=== PATIENT | male | born 1970 | race Caucasian/White ===

== ENCOUNTER 2017-04-15 11:58 | Emergency (ER) | payer MEDICARE, MEDICAID ==
--- NOTE | 2017-04-15 12:06 | ER Document Report ---
ED Seizure - General Chief Complaint: Probable Seizure Stated Complaint: POSSIBLE SEIZURE Time Seen by Provider: 04/15/17 12:03 Notes: Patient is a 46-year-old male, past medical history cerebral palsy, seizures in 2013 (taken off meds by Neurologist), chronic back pain, presents with a brief witnessed seizure that was described as generalized tonic-clonic and then a postictal period. His caregiver said that he was initially confused, but is improving while in the emergency room. He is due for his Klonopin and oxycodone right now. He is also having a new cough today. Denies head injury, rash, fevers or acute neuro changes. - Related Data Allergies/Adverse Reactions: Sulfa (Sulfonamide Antibiotics) Allergy (Severe, Verified 06/18/15 21:52) Vomiting Past Medical History - General Information source: Parent - Social History Smoking Status: Never Smoker Family History: Reviewed & Not Pertinent - Past Medical History Cardiac Medical History: Denies: Hx Coronary Artery Disease, Hx Heart Attack, Hx Hypertension Pulmonary Medical History: Reports: Hx Bronchitis, Hx Pneumonia - HX RESP FAILURE WITH PNEU LAST YEAR, Hx Tuberculosis Denies: Hx Asthma, Hx COPD Neurological Medical History: Reports: Hx Seizures. Denies: Hx Cerebrovascular Accident GI Medical History: Reports: Hx Gastroesophageal Reflux Disease, Hx Ulcer Musculoskeltal Medical History: Denies Hx Arthritis Psychiatric Medical History: Denies: Hx Depression Past Surgical History: Reports: Hx Orthopedic Surgery - Cyndy Rods for Scoliosis, 3 more subsequent back surgeries.. Denies: Hx Appendectomy, Hx Bowel Surgery, Hx Cholecystectomy, Hx Coronary Artery Bypass Graft, Hx Gastric Bypass Surgery, Hx Herniorrhaphy, Hx Pacemaker, Hx Tonsillectomy - Immunizations Immunizations up to date: Yes Hx Diphtheria, Pertussis, Tetanus Vaccination: Yes - UNSURE Hx Pneumococcal Vaccination: 10/29/14 Review of Systems - Review of Systems Notes: REVIEW OF SYSTEMS: CONSTITUTIONAL: -fevers, -chills EENT: -eye pain, -difficulty swallowing, -nasal congestion CARDIOVASCULAR:-chest pain, -syncope. RESPIRATORY: +cough, -SOB GASTROINTESTINAL: -abdominal pain, - nausea, -vomiting, -diarrhea GENITOURINARY: -dysuria, -hematuria MUSCULOSKELETAL: -back pain, -neck pain SKIN: -rash or skin lesions. HEMATOLOGIC: -easy bruising or bleeding. LYMPHATIC: -swollen, enlarged glands. NEUROLOGICAL: -headache, +seizures PSYCHIATRIC: -anxiety, -depression. ALL OTHER SYSTEMS REVIEWED AND NEGATIVE. Physical Exam - Vital signs Vitals: Resp Pulse Ox 10 L 91 L 04/15/17 12:10 04/15/17 12:10 - Notes Notes: PHYSICAL EXAMINATION: GENERAL: Contracted, no acute distress HEAD: Atraumatic, normocephalic. EYES: Pupils equal round and reactive to light, extraocular movements intact, sclera anicteric, conjunctiva are normal. ENT: nares patent, oropharynx clear without exudates. Moist mucous membranes. NECK: Normal range of motion, supple without lymphadenopathy LUNGS: Crackles in B/L upper lobes, no respiratory distress HEART: Regular rate and rhythm without murmurs ABDOMEN: G-tube in place, soft, nontender, normoactive bowel sounds. No guarding, no rebound. No masses appreciated. EXTREMITIES: Contracted extremities NEUROLOGICAL: Alert, no acute findings SKIN: Warm, Dry, normal turgor, no rashes or lesions noted. Course - Re-evaluation Re-evalutation: Pt is back to baseline. He was given his clonazepam has not had any additional seizures in the emergency room. Call from his primary care physician with urine culture results which were faxed over. With the pneumonia and UTI, will switch patient over to doxycycline and follow-up at primary care physician and neurologist. Patient in no respiratory distress and is satting 95% on his normal 2 L nasal cannula. Given strict return precautions and he understands. - Vital Signs Vital signs: Temp Pulse Resp BP Pulse Ox 98.4 F 92 12 126/86 H 94 04/15/17 12:13 04/15/17 12:13 04/15/17 13:01 04/15/17 13:00 04/15/17 13:01 - Laboratory Result Diagrams: 04/15/17 12:35 Laboratory results interpreted by me: 04/15/17 12:35 Chloride 95 L Carbon Dioxide 32 H BUN 24 H Calcium 10.3 H - Diagnostic Test Radiology reviewed: Image reviewed, Reports reviewed Radiology results interpreted by me: CXR: right upper airspace disease and left lung disease Discharge - Discharge Clinical Impression: Seizure Pneumonia Qualifiers: Pneumonia type: due to unspecified organism Laterality: bilateral Lung location : upper lobe of lung Qualified Code(s): J18.9 - Pneumonia, unspecified organism Condition: Stable Disposition: HOME, SELF-CARE Additional Instructions: Seizure You have had a seizure. Seizure disorders (epilepsy) of one sort or another affect about one out of 50 people. The seizure occurs because of abnormal electrical activity in the brain. Seizures may be due to drugs and alcohol, strokes, brain injury, or infection. In the most common form of epilepsy, no cause can be found. You will require further evaluation to determine the cause of your seizure, and to determine whether anti-seizure medication is required. This follow-up testing is important, so please call us if you encounter problems with scheduling of tests or appointments. YOU SHOULD NOT DRIVE until released to do so by your physician. The law requires that seizures be reported to the industrial tractor driver's license bureau--a seizure while driving could be catastrophic. Call the doctor if seizures recur, or if you develop new symptoms such as fever, severe headache, stiff neck, confusion or increasing sleepiness, weakness or numbness, or visual problems. PNEUMONIA: Your examination indicates that you have pneumonia. This is an infection of the lung tissue, usually caused by bacteria or a virus. Symptoms include cough, fever, shaking chills, chest pain, shortness of breath, and coughing up bloody sputum. Treatment for bacterial pneumonia includes rest, antibiotics for 10 to 14 days, increasing your clear liquid intake, a cool mist humidifier at your bedside, and fever medication. Often, a repeat chest X-ray is performed in a few weeks--even if you feel better--to ascertain whether the infection has completely resolved and no underlying lung problem is present. You should call the physician if you develop persistent vomiting, high fever that does not respond to fever medication, increasing shortness of breath , confusion, or lethargy. Also, failure to improve within two to three days is an indication for re-examination. ANTIBIOTIC INJECTION: You have been given an antibiotic injection. Sometimes the injection must be combined with antibiotic pills. For some infections, the shot provides all the antibiotic that's needed. Common side effects of antibiotics include nausea, intestinal cramping, or diarrhea. These are very unusual following a shot. Women may develop vaginal yeast infections, and babies can get yeast ( thrush) in the mouth following the use of antibiotics. Contact your physician if you develop significant side effects from this medication. Allergy to this antibiotic can result in hives, wheezing, faintness, or itching. If symptoms of allergy occur, call the doctor at once. ANTIBIOTIC THERAPY: You have been given an antibiotic prescription. It's important that you take all the medication, unless instructed otherwise by your physician. Failure to complete the entire course can result in relapse of your condition. Common side effects of antibiotics include nausea, intestinal cramping, or diarrhea. Women may develop vaginal yeast infections, and babies can get yeast (thrush) in the mouth following the use of antibiotics. Contact your physician if you develop significant side effects from this medication. Allergy to this antibiotic can result in hives, wheezing, faintness, or itching. If symptoms of allergy occur, stop the medication and call the doctor. DOXYCYCLINE: Doxycycline (Vibramycin, Doryx) is an antibiotic of the tetracycline family. This type of drug is useful for infections of the respiratory tract and genital tract, and is sometimes used for intestinal infections. Unlike most tetracyclines, doxycycline can be taken with food. It is longer acting, and (usually) less prone to side effects than regular tetracycline. Tetracycline antibiotics can stain immature teeth and SHOULD NOT BE TAKEN BY CHILDREN, NURSING MOTHERS, OR WOMEN. Tetracyclines can make you more prone to sunburn. Abdominal cramping, nausea, and diarrhea are occasional side effects. Women may experience vaginal yeast infections. Call the doctor at once if you develop hives, itching, shortness of breath , or lightheadedness. USE OF ACETAMINOPHEN (Tylenol): Acetaminophen may be taken for pain relief or fever control. It's much safer than aspirin, offering a wider range of "safe" dosages. It is safe during . Some brand names are Tylenol, Panadol, Datril, Anacin 3, Tempra, and Liquiprin. Acetaminophen can be repeated every four hours. The following are maximum recommended dosages: WEIGHT Dose Drops Elixir Chewable( 80mg) (LBS.) drprs=droppers tsp=teaspoon 6 40 mg 0.4 ml (1/2) 6-11 80 mg 0.8 ml (full) tsp 1 tab 12-16 120 mg 1 1/2 drprs 3/4 tsp 1 1/2 tabs 17-23 160 mg 2 drprs 1 tsp 2 tabs 24-30 240 mg 3 drprs 1 1/2 tsp 3 tabs 30-35 320 mg 2 tsp 4 tabs 36-41 360 mg 2 1/4 tsp 4 1/2 tabs 42-47 400 mg 2 1/2 tsp 5 tabs 48-53 480 mg 3 tsp 6 tabs 54-59 520 mg 3 1/4 tsp 6 1/2 tabs 60-64 560 mg 3 1/2 tsp 7 tabs 65-70 600 mg 3 3/4 tsp 7 1/2 tabs 71-76 640 mg 4 tsp 8 tabs 77-82 720 mg 4 1/2 tsp 9 tabs 83-88 800 mg 5 tsp 10 tabs >89 pounds or adults 650 mg to 900 mg Acetaminophen can be repeated every four hours. Maximum dose not to exceed 4000 mg a day. These maximum recommended dosages are slightly higher than the dosages written on the product container, but these dosages are very safe and below the toxic dosage for acetaminophen. FOLLOW-UP CARE: If you have been referred to a physician for follow-up care, call the physician s office for an appointment as you were instructed or within the next two days. If you experience worsening or a significant change in your symptoms, notify the physician immediately or return to the Emergency Department at any time for re-evaluation. Prescriptions: Doxycycline Hyclate 100 mg PO BID #14 capsule Referrals: JOSE ROBERTO SHANNON MD [Primary Care Provider] - Follow up as needed OSCAR WISE MD [ACTIVE STAFF] - Follow up as needed
[2017-04-15 12:57] LABS: ANION GAP 16 (5-19); BLOOD UREA NITROGEN 24 mg/dL (7-20); CALCIUM 10.3 mg/dL (8.4-10.2); CARBON DIOXIDE 32 mmol/L (22-30); CHLORIDE 95 mmol/L (98-107); CREATININE RESULT 0.74 mg/dL (0.52-1.25); GLUCOSE 108 mg/dL (75-110); SODIUM 143.1 mmol/L (137-145)
[2017-04-15] MEDS ORDERED: DOXYCYCLINE HYCLATE 100 MG TABLET PO ONE (13:50)
[2017-04-15 15:05] VITALS: BP 120/101
== END 2017-04-15 15:06 | disposition home or self-care (01) ==
LOC: ER 11:58
DX: R56.9 Unspecified convulsions (principal); N18.9 Chronic kidney disease, unspecified; G80.9 Cerebral palsy, unspecified; N39.0 Urinary tract infection, site not specified; R05 Cough; G89.29 Other chronic pain; Z79.891 Long term (current) use of opiate analgesic; Z79.899 Other long term (current) drug therapy; Z88.2 Allergy status to sulfonamides; Z93.1 Gastrostomy status
CPT/HCPCS: 99284; 36415; 80048; 71010; A9270

== ENCOUNTER → 2017-04-30 | Outpatient (CLI) | payer MEDICARE, MEDICAID ==
--- NOTE | 2017-05-06 16:23 | RADIOLOGY REPORT (SQ) ---
EXAM DESCRIPTION: UPPER GI/SM BOWEL COMPLETED DATE/TIME: 04/30/2017 12:14 pm REASON FOR STUDY: NAUSEA WITH VOMITING R11.2 NAUSEA WITH VOMITING, UNSPECIFIED R10.13 EPIGASTRIC P AIN R63.3 FEEDING DIFFICULTIES COMPARISON: None. TECHNIQUE: Under fluoroscopic guidance, thin barium was instilled through the patient's indwelling P EG tube. Fluoroscopic spot images and routine radiographic images acquired and stored on PACS. Following evaluation of stomach, additional barium administered with serial delayed abdominal radiogr aphs until colonic identification. Fluoroscopic images recorded of the terminal ileum. 12 MM BARIUM TABLET GIVEN: No. Patient is NPO. FLUOROSCOPY TIME: 2.4 minutes of fluoroscopy was used. 31 images saved to PACS. LIMITATIONS: Patient is non mobile FINDINGS: STOMACH: PEG tube in place. Normal without masses or ulcerations. GASTRIC OUTLET: No delay in emptying. Normal pylorus. DUODENAL BULB: Normal distention. No spasm or ulceration. DUODENUM: Mucosa normal. No extrinsic masses or malrotation. PROXIMAL SMALL BOWEL: Normal as visualized. JEJUNUM: Normal mucosal pattern. No dilatation, segmentation, strictures or masses. ILEUM: Normal mucosal pattern. No dilatation, segmentation, strictures or masses. TERMINAL ILEUM AND ILEO-CECAL VALVE: Normal mucosal pattern without cobble-stoning or stricture. Nor mal compression. PROXIMAL COLON: Incompletely imaged. No abnormality. NON-GI TRACT STRUCTURES: PEG tube in place over the mid abdomen with the tip within the lumen of the stomach. There is tracking of contrast along the tube tract to the insertion site. No extravasation of contrast is seen. OTHER: Spinal hardware is seen in place extending from the lower thoracic to the pelvis. IMPRESSION: 1. STOMACH AND DUODENUM ARE UNREMARKABLE. NO EVIDENCE OF ULCERATIONS OR MASSES. PEG T UBE IN PLACE WITH A SMALL AMOUNT OF CONTRAST TRACKING ALONG THE TUBE TRACT, WITHOUT INTRA-ABDOMINAL E XTRAVASATION. 2. NORMAL SMALL BOWEL FOLLOW-THROUGH WITHOUT EVIDENCE OF SMALL-BOWEL OBSTRUCTION. COMMENT: Quality ID [id number]: Final reports for procedures using fluoroscopy that document radiation exp osure indices, or exposure time and number of fluorographic images (if radiation exposure indices are not available) TECHNICAL DOCUMENTATION: JOB ID: [id number] [employer]- All Rights Reserved
== END ==
LOC: RAD 08:46
PROVIDERS: ATTEND Internal Medicine Gastroenterology
DX: R11.2 Nausea with vomiting, unspecified (principal); R10.13 Epigastric pain; R63.3 Feeding difficulties
CPT/HCPCS: 74249

== ENCOUNTER → 2017-07-08 | Outpatient (CLI) | payer MEDICARE, MEDICAID ==
[2017-07-08 14:31] LABS: ABSOLUTE BASOPHILS # (AUTO) 0.1 10^3/uL (0.0-0.2); ABSOLUTE EOSINOPHILS # (AUTO) 0.2 10^3/uL (0.0-0.6); ABSOLUTE LYMPHOCYTES (AUTO) 2.3 10^3/uL (0.5-4.7); ABSOLUTE MONOCYTES (AUTO) 0.8 10^3/uL (0.1-1.4); ABSOLUTE NEUT (AUTO) 12.1 10^3/uL (1.7-8.2); BASOPHILS % (AUTO) 0.9 % (0-2); EOSINOPHILS % (AUTO) 1.1 % (0-6); HEMOGLOBIN 10.5 g/dL (13.5-17.0); HGB HCT DIFFERENCE -0.5; LYMPHOCYTES % (AUTO) 14.9 % (13-45); MEAN CORPUSCULAR HEMOGLOBIN 30.1 pg (27.0-33.4); MEAN CORPUSCULAR HGB CONC 32.9 g/dL (32.0-36.0); MEAN CORPUSCULAR VOLUME 92 fl (80-97); MONOCYTES % (AUTO) 5.4 % (3-13); RED CELL DISTRIBUTION WIDTH 14.1 % (11.5-14.0); SEGMENTED NEUTROPHILS % (AUTO) 77.7 % (42-78); WHITE BLOOD COUNT 15.6 10^3/uL (4.0-10.5)
[2017-07-08 14:48] LABS: ALANINE AMINOTRANSFERASE 63 U/L (21-72); ALBUMIN 4.5 g/dL (3.5-5.0); ALKALINE PHOSPHATASE 187 U/L (38-126); ANION GAP 13 (5-19); ASPARTATE AMINO TRANSFERASE 53 U/L (17-59); BILIRUBIN,DIRECT 0.7 mg/dL (0.0-0.4); BILIRUBIN,TOTAL 0.7 mg/dL (0.2-1.3); BLOOD UREA NITROGEN 25 mg/dL (7-20); CALCIUM 9.9 mg/dL (8.4-10.2); CARBON DIOXIDE 34 mmol/L (22-30); CHLORIDE 92 mmol/L (98-107); CREATININE RESULT 0.67 mg/dL (0.52-1.25); GLUCOSE 193 mg/dL (75-110); POTASSIUM 4.2 mmol/L (3.6-5.0); SODIUM 139.4 mmol/L (137-145); TOTAL PROTEIN 8.6 g/dL (6.3-8.2)
== END ==
LOC: OD 13:39
PROVIDERS: ATTEND Family Medicine Geriatric Medicine
DX: D64.9 Anemia, unspecified (principal); Z79.899 Other long term (current) drug therapy
CPT/HCPCS: 36415; 80053; 82728; 83540; 83550; 84466; 85025; 85045

== ENCOUNTER → 2018-03-08 | Outpatient (CLI) | payer MEDICARE, MEDICAID ==
[2018-03-08 14:55] LABS: ABSOLUTE BASOPHILS # (AUTO) 0.1 10^3/uL (0.0-0.2); ABSOLUTE EOSINOPHILS # (AUTO) 0.1 10^3/uL (0.0-0.6); ABSOLUTE MONOCYTES (AUTO) 0.9 10^3/uL (0.1-1.4); ABSOLUTE NEUT (AUTO) 11.3 10^3/uL (1.7-8.2); BASOPHILS % (AUTO) 0.4 % (0-2); EOSINOPHILS % (AUTO) 0.6 % (0-6); HEMATOCRIT 34.8 % (37.9-51.0); HEMOGLOBIN 11.4 g/dL (13.5-17.0); LYMPHOCYTES % (AUTO) 7.4 % (13-45); MEAN CORPUSCULAR HGB CONC 32.6 g/dL (32.0-36.0); MEAN CORPUSCULAR VOLUME 92 fl (80-97); MONOCYTES % (AUTO) 6.6 % (3-13); PLATELET COUNT 350 10^3/uL (150-450); RED BLOOD COUNT 3.79 10^6/uL (4.35-5.55); RED CELL DISTRIBUTION WIDTH 14.2 % (11.5-14.0); TOTAL CELLS COUNTED % (AUTO) 100 %; WHITE BLOOD COUNT 13.3 10^3/uL (4.0-10.5)
[2018-03-08 15:24] LABS: ALANINE AMINOTRANSFERASE 37 U/L (21-72); ALBUMIN 4.1 g/dL (3.5-5.0); ALKALINE PHOSPHATASE 147 U/L (38-126); ANION GAP 15 (5-19); ASPARTATE AMINO TRANSFERASE 34 U/L (17-59); BILIRUBIN,DIRECT 0.3 mg/dL (0.0-0.4); BILIRUBIN,TOTAL 0.3 mg/dL (0.2-1.3); BLOOD UREA NITROGEN 25 mg/dL (7-20); CALCIUM 9.7 mg/dL (8.4-10.2); CARBON DIOXIDE 34 mmol/L (22-30); CHLORIDE 95 mmol/L (98-107); POTASSIUM 3.9 mmol/L (3.6-5.0); SODIUM 144.4 mmol/L (137-145); TOTAL PROTEIN 7.9 g/dL (6.3-8.2)
[2018-03-08 15:25] LABS: GLUCOSE 153 mg/dL (75-110)
== END ==
LOC: OD 13:15
PROVIDERS: ATTEND Family Medicine Geriatric Medicine
DX: D50.9 Iron deficiency anemia, unspecified (principal); N39.0 Urinary tract infection, site not specified; G40.909 Epilepsy, unspecified, not intractable, without status epilepticus; Z79.899 Other long term (current) drug therapy
CPT/HCPCS: 36415; 80053; 85025; 87086; 87088; 87186

== ENCOUNTER 2018-03-10 15:25 | Emergency (ER) | payer MEDICARE, MEDICAID ==
--- NOTE | 2018-03-10 16:35 | ER Document Report ---
ED Medical Screen (RME) - General Chief Complaint: Fever Stated Complaint: POSSIBLE DEHYDRATION Time Seen by Provider: 03/10/18 16:27 Notes: 47-year-old male patient with severe cerebral palsy, feeding gastrostomy and suprapubic tube. Mother reports she has had low-grade temperature for a week. She reports that he is making urine but not very much because he is not getting much liquids. He does receive his fluids through the feeding tube. There was a little confusing trying to elicit the specific reason why he is not receiving adequate fluid and while she thinks that he is getting dehydrated. He did have lab work done 2 days ago with a CBC, Chem-12, and a urine culture. Urine culture grew Pseudomonas, corynebacterium, and gram-positive cocci clusters, all 3 at greater than 100,000 colony count. He was to start gentamicin injections at home today, but the mother was concerned that he was getting dehydrated so he was instructed to come to the emergency room for evaluation and treatment. I have greeted and performed a rapid initial assessment of this patient. A comprehensive ED assessment and evaluation of the patient, analysis of test results and completion of the medical decision making process will be conducted by additional ED providers. TRAVEL OUTSIDE OF THE [place] IN LAST 30 DAYS: No - Related Data Allergies/Adverse Reactions: Sulfa (Sulfonamide Antibiotics) Allergy (Severe, Verified 03/10/18 15:27) Vomiting Past Medical History - Past Medical History Cardiac Medical History: Denies: Hx Coronary Artery Disease, Hx Heart Attack, Hx Hypertension Pulmonary Medical History: Reports: Hx Bronchitis, Hx Pneumonia - HX RESP FAILURE WITH PNEU LAST YEAR, Hx Tuberculosis Denies: Hx Asthma, Hx COPD Neurological Medical History: Reports: Hx Seizures. Denies: Hx Cerebrovascular Accident Renal/ Medical History: Denies: Hx Peritoneal Dialysis GI Medical History: Reports: Hx Gastroesophageal Reflux Disease, Hx Ulcer Musculoskeltal Medical History: Denies Hx Arthritis Psychiatric Medical History: Denies: Hx Depression Past Surgical History: Reports: Hx Orthopedic Surgery - Cyndy Rods for Scoliosis, 3 more subsequent back surgeries.. Denies: Hx Appendectomy, Hx Bowel Surgery, Hx Cholecystectomy, Hx Coronary Artery Bypass Graft, Hx Gastric Bypass Surgery, Hx Herniorrhaphy, Hx Pacemaker, Hx Tonsillectomy - Immunizations Immunizations up to date: Yes Hx Diphtheria, Pertussis, Tetanus Vaccination: Yes - UNSURE Physical Exam - Vital signs Vitals: Temp Pulse Resp BP Pulse Ox 98.4 F 89 14 93/64 L 96 03/10/18 15:33 03/10/18 15:33 03/10/18 15:33 03/10/18 15:33 03/10/18 15:33 Course - Vital Signs Vital signs: Temp Pulse Resp BP Pulse Ox 98.4 F 89 14 93/64 L 96 03/10/18 15:33 03/10/18 15:33 03/10/18 15:33 03/10/18 15:33 03/10/18 15:33
[2018-03-10 17:51] LABS: ABSOLUTE BASOPHILS # (AUTO) 0.1 10^3/uL (0.0-0.2); ABSOLUTE LYMPHOCYTES (AUTO) 1.2 10^3/uL (0.5-4.7); ABSOLUTE MONOCYTES (AUTO) 1.4 10^3/uL (0.1-1.4); ABSOLUTE NEUT (AUTO) 14.4 10^3/uL (1.7-8.2); BASOPHILS % (AUTO) 0.3 % (0-2); EOSINOPHILS % (AUTO) 0.1 % (0-6); HEMATOCRIT 32.1 % (37.9-51.0); HEMOGLOBIN 10.4 g/dL (13.5-17.0); LYMPHOCYTES % (AUTO) 7.1 % (13-45); MEAN CORPUSCULAR HEMOGLOBIN 29.4 pg (27.0-33.4); MEAN CORPUSCULAR HGB CONC 32.2 g/dL (32.0-36.0); MEAN CORPUSCULAR VOLUME 91 fl (80-97); MONOCYTES % (AUTO) 8.1 % (3-13); PLATELET COUNT 352 10^3/uL (150-450); RED BLOOD COUNT 3.52 10^6/uL (4.35-5.55); RED CELL DISTRIBUTION WIDTH 14.1 % (11.5-14.0); SEGMENTED NEUTROPHILS % (AUTO) 84.4 % (42-78); TOTAL CELLS COUNTED % (AUTO) 100 %
[2018-03-10 18:10] LABS: ALANINE AMINOTRANSFERASE 33 U/L (21-72); ALBUMIN 3.8 g/dL (3.5-5.0); ALKALINE PHOSPHATASE 167 U/L (38-126); ANION GAP 9 (5-19); ASPARTATE AMINO TRANSFERASE 22 U/L (17-59); BILIRUBIN,DIRECT 0.4 mg/dL (0.0-0.4); BILIRUBIN,TOTAL 0.4 mg/dL (0.2-1.3); BLOOD UREA NITROGEN 25 mg/dL (7-20); CALCIUM 9.5 mg/dL (8.4-10.2); CARBON DIOXIDE 35 mmol/L (22-30); CHLORIDE 96 mmol/L (98-107); GLUCOSE 114 mg/dL (75-110); POTASSIUM 3.8 mmol/L (3.6-5.0); SODIUM 140.3 mmol/L (137-145); TOTAL PROTEIN 7.6 g/dL (6.3-8.2)
[2018-03-10] MEDS ORDERED: NORMAL SALINE 1000 ML 1,000 ML IV ONE (18:17)
--- NOTE | 2018-03-10 19:06 | ER Document Report ---
ED General - General Chief Complaint: Fever Stated Complaint: POSSIBLE DEHYDRATION Time Seen by Provider: 03/10/18 16:27 TRAVEL OUTSIDE OF THE [place] IN LAST 30 DAYS: No - HPI Patient complains to provider of: Fever, UTI, dehydration Onset: Other - 4-5 days Onset/Duration: Persistent, Worse Notes: 47-year-old male patient with severe cerebral palsy, feeding gastrostomy and suprapubic tube. Mother reports she has had low-grade temperature for a week. She reports that he is making urine but not very much because he is not getting much liquids. He does receive his fluids through the feeding tube. Patient had outpatient labs performed earlier this week which shows evidence of a urinary tract infection as well as some kidney and liver dysfunction according to patient's mother, he was given a prescription for intramuscular antibiotic injections which mother is comfortable giving at home but she was concerned that he was possibly dehydrated and needed IV fluids - Related Data Allergies/Adverse Reactions: Sulfa (Sulfonamide Antibiotics) Allergy (Severe, Verified 03/10/18 15:27) Vomiting Past Medical History - General Information source: Parent - Social History Smoking Status: Never Smoker Family History: Reviewed & Not Pertinent Patient has suicidal ideation: No Patient has homicidal ideation: No - Past Medical History Cardiac Medical History: Denies: Hx Coronary Artery Disease, Hx Heart Attack, Hx Hypertension Pulmonary Medical History: Reports: Hx Bronchitis, Hx Pneumonia - HX RESP FAILURE WITH PNEU LAST YEAR, Hx Tuberculosis Denies: Hx Asthma, Hx COPD Neurological Medical History: Reports: Hx Seizures. Denies: Hx Cerebrovascular Accident Renal/ Medical History: Denies: Hx Peritoneal Dialysis GI Medical History: Reports: Hx Gastroesophageal Reflux Disease, Hx Ulcer Musculoskeltal Medical History: Denies Hx Arthritis Psychiatric Medical History: Denies: Hx Depression Past Surgical History: Reports: Hx Orthopedic Surgery - Cyndy Rods for Scoliosis, 3 more subsequent back surgeries.. Denies: Hx Appendectomy, Hx Bowel Surgery, Hx Cholecystectomy, Hx Coronary Artery Bypass Graft, Hx Gastric Bypass Surgery, Hx Herniorrhaphy, Hx Pacemaker, Hx Tonsillectomy - Immunizations Immunizations up to date: Yes Hx Diphtheria, Pertussis, Tetanus Vaccination: Yes - UNSURE Hx Pneumococcal Vaccination: 10/29/14 Review of Systems - Review of Systems Constitutional: Fever EENT: No symptoms reported Cardiovascular: No symptoms reported Respiratory: No symptoms reported Gastrointestinal: Poor appetite, Poor fluid intake Genitourinary: No symptoms reported Male Genitourinary: No symptoms reported Musculoskeletal: No symptoms reported Skin: No symptoms reported Hematologic/Lymphatic: No symptoms reported Neurological/Psychological: No symptoms reported -: Yes All other systems reviewed and negative Physical Exam - Vital signs Vitals: Temp Pulse Resp BP Pulse Ox 98.4 F 89 14 93/64 L 96 03/10/18 15:33 03/10/18 15:33 03/10/18 15:33 03/10/18 15:33 03/10/18 15:33 Interpretation: Hypotensive - General General appearance: Alert In distress: None - HEENT Head: Normocephalic, Atraumatic Eyes: Normal Cornea: Normal Eyelashes: Normal Pupils: PERRL Mucous membranes: Dry - Respiratory Respiratory status: No respiratory distress Chest status: Nontender Breath sounds: Normal Chest palpation: Normal - Cardiovascular Rhythm: Regular Heart sounds: Normal auscultation Murmur: No - Abdominal Inspection: Other - Gastrostomy tube in place Bowel sounds: Normal Tenderness: Nontender Organomegaly: No organomegaly - Extremities General upper extremity: Other - Bilaterally contracted - Skin Skin Temperature: Warm Skin Moisture: Dry Skin Color: Normal Course - Re-evaluation Re-evalutation: 03/10/18 23:03 Patient with leukocytosis and otherwise mild abnormalities on chemistry, he was provided with IV fluids, I had a discussion with patient's mother regarding treatment plan, and she does state that she is comfortable giving intramuscular doses of antibiotics at home and would prefer patient to go home with this medication that was prescribed by his primary care provider as he would be much more comfortable given the degree of cerebral palsy and his special needs, since patient is otherwise stable, he was discharged after receiving IV fluids and 1 dose of IV gentamicin, mother was advised to follow-up with the primary care provider as directed or return if symptoms worsen, mother acknowledges understanding and agreement with this plan - Vital Signs Vital signs: Temp Pulse Resp BP Pulse Ox 97.9 F 91 14 89/62 L 96 03/10/18 22:24 03/10/18 22:24 03/10/18 15:33 03/10/18 22:24 03/10/18 22:24 - Laboratory Result Diagrams: 03/10/18 17:32 03/10/18 17:32 Laboratory results interpreted by me: 03/10/18 03/10/1803/10/18 17:32 17:32 19:26 WBC 17.0 H RBC 3.52 L Hgb 10.4 L Hct 32.1 L RDW 14.1 H Seg Neutrophils % 84.4 H Lymphocytes % 7.1 L Absolute Neutrophils 14.4 H Chloride 96 L Carbon Dioxide 35 H BUN 25 H Creatinine 0.42 L Glucose 114 H Alkaline Phosphatase 167 H Urine Protein 30 H Urine Ketones 20 H Urine Nitrite POSITIVE H Urine Bilirubin SMALL H Urine Urobilinogen 2.0 H Ur Leukocyte Esterase LARGE H Discharge - Discharge Clinical Impression: Urinary tract infection Qualifiers: Urinary tract infection type: site unspecified Hematuria presence: without hematuria Qualified Code(s): N39.0 - Urinary tract infection, site not specified Condition: Stable Disposition: HOME, SELF-CARE Instructions: Urinary Tract Infection ([facility]) Additional Instructions: Follow up with your primary care provider in one to 2 days. Return to the emergency room immediately if symptoms worsen or any additional concerns. Referrals: WILLIAM SHANNON MD [Primary Care Provider] - Follow up as needed
[2018-03-10 20:00] LABS: AMORPHOUS SEDIMENT,URINE TRACE /HPF; APPEARANCE,URINE CLOUDY; BILIRUBIN,URINE SMALL (NEGATIVE); COLOR,URINE AMBER; GLUCOSE, URINE NEGATIVE (NEGATIVE); KETONES,URINE 20 mg/dL (NEGATIVE); LEUKOCYTE ESTERASE,URINE LARGE (NEGATIVE); NITRITE,URINE POSITIVE (NEGATIVE); PROTEIN,URINE 30 mg/dL (NEGATIVE); URINE SPECIFIC GRAVITY 1.025
[2018-03-10] MEDS ORDERED: GENTAMICIN SULFATE INJ 80 MG/2 ML VIAL IV ONE (20:25)
[2018-03-10 22:31] VITALS: BP 89/62
== END 2018-03-10 22:32 | disposition home or self-care (01) ==
LOC: ER 15:25
DX: N39.0 Urinary tract infection, site not specified (principal); R50.9 Fever, unspecified; D72.829 Elevated white blood cell count, unspecified; G80.9 Cerebral palsy, unspecified; Z93.1 Gastrostomy status
CPT/HCPCS: 36415; 87040; 87086; 85025; 87088; 80053; 81001; 87186; J1580; J7030; 96361; 96365; 99283

== ENCOUNTER → 2018-03-24 | Outpatient (CLI) | payer MEDICARE, MEDICAID ==
--- NOTE | 2018-03-24 11:10 | RADIOLOGY REPORT (SQ) ---
EXAM DESCRIPTION: U/S ABDOMEN COMPLETE W/O DOP COMPLETED DATE/TIME: 03/24/2018 10:32 am REASON FOR STUDY: R94.6 ABNORMAL RESULTS OF THYROID FUNCTION STUDIES R94.6 ABNORMAL RESULTS OF THYR OID FUNCTION STUDIES COMPARISON: None. TECHNIQUE: Dynamic and static grayscale images acquired of the abdomen and recorded on PACS. Additio nal selected color Doppler and spectral images recorded. LIMITATIONS: None. FINDINGS: PANCREAS: No masses. Visualized pancreatic duct normal caliber. LIVER: No masses. Echotexture normal. LIVER VASCULATURE: Normal directional flow of the main portal vein and hepatic veins. GALLBLADDER: No stones. Normal wall thickness. No pericholecystic fluid. ULTRASOUND-DETECTED OLIVEIRA'S SIGN: Negative. INTRAHEPATIC DUCTS AND COMMON DUCT: CBD and intrahepatic ducts normal caliber. No filling defects. INFERIOR VENA CAVA: Normal flow. AORTA: No aneurysm. RIGHT KIDNEY: Normal size. Normal echogenicity. No solid or suspicious masses. No hydronephros is. No calcifications. LEFT KIDNEY: Normal size. Normal echogenicity. No solid or suspicious masses. No hydronephrosi s. No calcifications. SPLEEN: Normal size. No solid masses. PERITONEAL AND PLEURAL SPACES: No ascites or effusions. OTHER: No other significant finding. IMPRESSION: NORMAL ABDOMINAL ULTRASOUND. TECHNICAL DOCUMENTATION: JOB ID: [id number] [employer]- All Rights Reserved Reading location - IP/workstation name: [email or web address]
== END ==
LOC: RAD 09:27
PROVIDERS: ATTEND Family Medicine Geriatric Medicine
DX: R94.6 Abnormal results of thyroid function studies (principal)
CPT/HCPCS: 76700

== ENCOUNTER 2018-04-04 11:56 | Day surgery (SDC) | payer MEDICARE, MEDICAID ==
[~2018-04-04 11:56] MED LIST: DEXTROSE 5%-1/2 NORMAL SALINE 1,000 ML IV PRN; VANCOMYCIN HCL 500 MG in DEXTROSE 5%-WATER 100 ML IV PRN
[2018-04-04] MEDS ORDERED: LIDOCAINE 0.5% INJ-PF (5 MG/ML) 50 ML SDV ONE (13:07)
[2018-04-04] MEDS ORDERED: BUPIVACAINE HCL 0.25 % INJ/PF (2.5 MG/1 ML) 30 ML VIAL ONE (13:07)
[2018-04-04] MEDS ORDERED: BACITRACIN INJ 50,000 UNIT VIAL ONE (13:08)
[2018-04-04] MEDS ORDERED: LIDOCAINE 2% INJ-PF (20 MG/ML) 10 ML AMPUL ONE (13:19)
[2018-04-04] MEDS ORDERED: FENTANYL CITRATE INJ/PF 100 MCG/2 ML AMPUL ONE ×2 (13:19→13:20)
[2018-04-04] MEDS ORDERED: PROPOFOL INJ 200 MG/20 ML VIAL IV ONE (13:20)
[2018-04-04] MEDS ORDERED: MIDAZOLAM 2 MG/2 ML INJ ONE (13:20)
[2018-04-04 13:31] LABS: HEMOGLOBIN 10.7 g/dL (13.5-17.0); MEAN CORPUSCULAR HEMOGLOBIN 29.9 pg (27.0-33.4); MEAN CORPUSCULAR HGB CONC 33.3 g/dL (32.0-36.0); MEAN CORPUSCULAR VOLUME 90 fl (80-97); PLATELET COUNT 316 10^3/uL (150-450); RED BLOOD COUNT 3.56 10^6/uL (4.35-5.55); RED CELL DISTRIBUTION WIDTH 13.4 % (11.5-14.0); WHITE BLOOD COUNT 9.6 10^3/uL (4.0-10.5)
[2018-04-04 13:51] LABS: BLOOD UREA NITROGEN 15 mg/dL (7-20); CALCIUM 9.6 mg/dL (8.4-10.2); CHLORIDE 92 mmol/L (98-107); GLUCOSE 133 mg/dL (75-110); POTASSIUM 3.7 mmol/L (3.6-5.0); SODIUM 137.7 mmol/L (137-145)
[2018-04-04 13:57] LABS: ANION GAP 6 (5-19)
[2018-04-04 14:00] LABS: CARBON DIOXIDE 40 mmol/L (22-30)
[2018-04-04] MEDS ORDERED: EPHEDRINE SULFATE INJ 50 MG/1 ML AMPULE ONE (14:51)
[2018-04-04] MEDS ORDERED: FENTANYL CITRATE INJ/PF 100 MCG/2 ML AMPUL IV PRN ×3 (15:00)
[2018-04-04] MEDS ORDERED: DIPHENHYDRAMINE HCL 50 MG/ML VIAL IV PRN (15:00)
[2018-04-04] MEDS ORDERED: MEPERIDINE HCL/PF INJ 25 MG/1 ML DISP.SYRIN IV PRN (15:00)
[2018-04-04] MEDS ORDERED: OXYCODONE-ACETAMINOPHEN 5-325 MG TABLET PO PRN ×2 (15:00)
[2018-04-04] MEDS ORDERED: PROMETHAZINE HCL INJ 25 MG/1 ML VIAL IV PRN ×2 (15:00)
--- NOTE | 2018-04-04 15:00 | RADIOLOGY REPORT (SQ) ---
EXAM DESCRIPTION: CHEST SINGLE VIEW COMPLETED DATE/TIME: 04/04/2018 1:20 pm REASON FOR STUDY: preop COMPARISON: 04/15/2017 EXAM PARAMETERS: NUMBER OF VIEWS: One view. TECHNIQUE: Single frontal radiographic view of the chest acquired. RADIATION DOSE: NA LIMITATIONS: None. FINDINGS: LUNGS AND PLEURA: No opacities, masses or pneumothorax. No pleural effusion. MEDIASTINUM AND HILAR STRUCTURES: No masses. Contour normal. HEART AND VASCULAR STRUCTURES: Stable heart size. BONES: No acute findings. HARDWARE: Left vagal nerve stimulator. Spinal fusion rods. OTHER: No other significant finding. IMPRESSION: NO ACUTE RADIOGRAPHIC FINDING IN THE CHEST. TECHNICAL DOCUMENTATION: JOB ID: [id number] [employer]- All Rights Reserved Reading location - IP/workstation name: [email or web address]
--- NOTE | 2018-04-04 16:13 | RADIOLOGY REPORT (SQ) ---
EXAM DESCRIPTION: FLUORO/CV PLACEMENT COMPLETED DATE/TIME: 04/04/2018 3:59 pm REASON FOR STUDY: PORTACATH N39.0 URINARY TRACT INFECTION, SITE NOT SPECIFIED COMPARISON: None. FLUOROSCOPY TIME: 0.3 minutes 10 images saved to PACS. TECHNIQUE: Intra-operative images acquired during surgical procedure to evaluate progress. NUMBER OF IMAGES: 10 LIMITATIONS: None. FINDINGS: Selected images from right side Port-A-Cath placement. Tip overlies SVC. IMPRESSION: IMAGE(S) OBTAINED DURING PROCEDURE. COMMENT: Quality ID [id number]: Final reports for procedures using fluoroscopy that document radiation exp osure indices, or exposure time and number of fluorographic images (if radiation exposure indices are not available) Please consult full operative report of the attending physician for description of the procedure. TECHNICAL DOCUMENTATION: JOB ID: [id number] [email or web address]- All Rights Reserved Reading location - IP/workstation name: [email or web address]
--- NOTE | 2018-04-04 16:41 | Discharge Summary ---
Discharge Summary (SDC) - Discharge Final Diagnosis: #1 recurrent urinary tract infection. 2. Failure of venous access. 3. General debility. Date of Surgery: 04/04/18 Discharge Date: 04/04/18 Condition: Poor Treatment or Instructions: Discharge home [after recovery per ASU criteria]. Diet ,as tolerated, when fully awake advance as tolerated. Activities within moderation encouraged. Follow up in my office by appointment in about [1 week]. Call for appointment. Leave wounds [covered], [keep clean and dry, until office visit in 1 week]. Hold of on school/work [until evaluation in office] Meds per med rec. May shower [in 48 hrs], [try to keep operated area as dry as possible]. Referrals: JOSE ROBERTO SHANNON MD [Primary Care Provider] - Discharge Diet: As Tolerated Respiratory Treatments at Home: Deep Breathing/Coughing Discharge Activity: Activity As Tolerated Report the Following to Your Physician Immediately: Shortness of Breath, Unusual Bleeding
--- NOTE | 2018-04-04 16:44 | Operative Report ---
Operative Report DATE OF SURGERY: 04/04/18 PREOPERATIVE DIAGNOSIS: #1 recurrent urinary tract infection. 2. Failure of venous access. 3. General debility. POSTOPERATIVE DIAGNOSIS: #1 recurrent urinary tract infection. 2. Failure of venous access. 3. General debility. OPERATION: 1. Ultrasound evaluation of right internal jugular vein. 2. Insertion of Port-A-Cath via real-time access in the right internal jugular vein. 3. Angiogram and interpretation. SURGEON: KEAGAN BURCH [employer] RESOURCE SPECIALIST: None. ANESTHESIA: Moderate Sedation TISSUE REMOVED OR ALTERED: Not applicable. COMPLICATIONS: None. ESTIMATED BLOOD LOSS: 5 mL. INTRAOPERATIVE FINDINGS: Of a satisfactory right internal jugular veins for the Port-A-Cath. About 1.2 cm in diameter. Satisfactory position with the tip of the catheter just down in the right atrium. Easy egress of blood and ingress of heparinized solution. Satisfactory flow of contrast through the catheter, right atrium. PROCEDURE: After obtaining informed consent, the patient was taken to the [operating room] and positioned supine. The [right] neck and chest were prepared with chlorhexidine and draped out with sterile linen. After the " universal timeout ", in which it was verified that the patient continued to receive antibiotic, the procedure commenced. A steriley sheathed ultrasound probe was used to evaluate the [right] internal jugular vein. Local anesthesia was infiltrated adjacent to the probe. Access into the [right] internal jugular vein was obtained using a micropuncture needle, followed by micropuncture wire and then a micropuncture catheter. This was followed by introduction of a 0.035 guidewire the tip of which was placed down into the inferior vena cava . The port sites was marked , locally anesthetized and incision made. Dissection now proceeded to the deep subcutaneous subcutaneous tissues so that a pocket for the port was made. Meticulous hemostasis was secured and the catheter was tunneled between the 2 incisions. Proximally, the catheter was now positioned using a peel-away sheath. Distally the catheter was tailored to an appropriate length and then mated to the port using the contained fixating device. The port was now placed in the pocket and the catheter optimally positioned. The port was accessed with a Mccabe needle and an angiogram done under digital subtraction. The findings as dictated. With adequate and satisfactory positioning, both lumens of the chamber were irrigated with heparinized solution. The wounds were now closed using interrupted 3-0 PDS to the subcutaneous tissues and a continuous subcuticular suture of 4-0 Monocryl to the skin. These are reinforced with Steri-Strips over benzoin and then dressings applied. Time: 0.3 Minute. Dose: 2.63 m Gy Contrast: 10 mls. Isovue 300. Copies of the dictated operative report for Dr. Keagan Stroud MD.
[2018-04-04 17:55] VITALS: BP 103/61
== END 2018-04-04 17:40 | disposition home or self-care (01) ==
LOC: OROUT 11:56
PROVIDERS: ATTEND Surgery
DX: N39.0 Urinary tract infection, site not specified (principal); G80.8 Other cerebral palsy; D64.9 Anemia, unspecified; G40.909 Epilepsy, unspecified, not intractable, without status epilepticus; R52 Pain, unspecified; Z87.09 Personal history of other diseases of the respiratory system; Q67.5 Congenital deformity of spine; Z87.891 Personal history of nicotine dependence; Z79.899 Other long term (current) drug therapy; Z79.1 Long term (current) use of non-steroidal anti-inflammatories (NSAID); Z86.14 Personal history of Methicillin resistant Staphylococcus aureus infection; Z87.898 Personal history of other specified conditions
CPT/HCPCS: 36561; 36415; 85027; 80048; 71045; 77001; C1752; C1788; Q9967; J2250; J3490 ×4; J2550; J3370; J2704; J1642; 532; J3010

== ENCOUNTER 2018-05-15 13:33 | Emergency (ER) | payer MEDICARE, MEDICAID ==
[2018-05-15] MEDS ORDERED: NORMAL SALINE 1000 ML 1,000 ML IV ONE (14:56)
--- NOTE | 2018-05-15 14:57 | ER Document Report ---
ED Medical Screen (RME) - General Chief Complaint: Fever Stated Complaint: HEADACHE,FEVER Time Seen by Provider: 05/15/18 14:40 Mode of Arrival: Ambulatory Information source: Patient Notes: 47-year-old male with a history of cerebral palsy, seizures, remote history of meningitis in 1998 presents with his mother who is concerned for located temperature, vomiting, decreased p.o. intake. Mother of the child states that she has been trying to arrange for weekly hydration with home health care who cannot provide this for her at this time. Mother is concerned for dehydration. Patient's temperature at home was 99.9. He did receive Tylenol for this. Mother also reports that the patient has been complaining of a headache. She denies sick contacts, recent hospitalizations. I have greeted and performed a rapid initial assessment of this patient. A comprehensive ED assessment and evaluation of the patient including analysis of labs and imaging ( if obtained) and completion of medical decision making will be conducted by an additional ED provider. PHYSICAL EXAMINATION: GENERAL: Wheelchair bound, sleeping HEAD: Atraumatic, normocephalic. LUNGS: No respiratory distress PSYCH: Normal mood, normal affect. SKIN: Warm, Dry, normal turgor, no rashes or lesions noted. TRAVEL OUTSIDE OF THE [place] IN LAST 30 DAYS: No - Related Data Allergies/Adverse Reactions: Sulfa (Sulfonamide Antibiotics) Allergy (Severe, Verified 05/15/18 13:34) Vomiting Past Medical History - Past Medical History Cardiac Medical History: Denies: Hx Coronary Artery Disease, Hx Heart Attack, Hx Hypertension Pulmonary Medical History: Reports: Hx Bronchitis, Hx Pneumonia - HX RESP FAILURE WITH PNEU LAST YEAR, Hx Tuberculosis Denies: Hx Asthma, Hx COPD Neurological Medical History: Reports: Hx Seizures. Denies: Hx Cerebrovascular Accident Renal/ Medical History: Denies: Hx Peritoneal Dialysis GI Medical History: Reports: Hx Gastroesophageal Reflux Disease, Hx Ulcer Musculoskeltal Medical History: Denies Hx Arthritis Psychiatric Medical History: Denies: Hx Depression Past Surgical History: Reports: Hx Orthopedic Surgery - Cyndy Rods for Scoliosis, 3 more subsequent back surgeries.. Denies: Hx Appendectomy, Hx Bowel Surgery, Hx Cholecystectomy, Hx Coronary Artery Bypass Graft, Hx Gastric Bypass Surgery, Hx Herniorrhaphy, Hx Pacemaker, Hx Tonsillectomy - Immunizations Immunizations up to date: Yes Hx Diphtheria, Pertussis, Tetanus Vaccination: Yes - UNSURE Physical Exam - Vital signs Vitals: Temp Pulse Resp BP Pulse Ox 99.2 F 106 H 16 83/55 L 95 05/15/18 13:42 05/15/18 13:42 05/15/18 13:42 05/15/18 13:42 05/15/18 13:42 Course - Vital Signs Vital signs: Temp Pulse Resp BP Pulse Ox 99.2 F 106 H 16 83/55 L 95 05/15/18 13:42 05/15/18 13:42 05/15/18 13:42 05/15/18 13:42 05/15/18 13:42 Doctor's Discharge - Discharge Referrals: JOSE ROBERTO SHANNON MD [Primary Care Provider] - Follow up as needed
[2018-05-15 15:31] LABS: AMORPHOUS SEDIMENT,URINE TRACE /HPF; APPEARANCE,URINE CLOUDY; BILIRUBIN,URINE SMALL (NEGATIVE); CALCIUM OXALATE CRYSTALS,URINE RARE /HPF; COLOR,URINE AMBER; GLUCOSE, URINE NEGATIVE (NEGATIVE); KETONES,URINE 80 mg/dL (NEGATIVE); LEUKOCYTE ESTERASE,URINE LARGE (NEGATIVE); NITRITE,URINE NEGATIVE (NEGATIVE); PROTEIN,URINE 100 mg/dL (NEGATIVE); URINE SPECIFIC GRAVITY 1.028
[2018-05-15 16:44] LABS: ABSOLUTE BASOPHILS # (AUTO) 0.1 10^3/uL (0.0-0.2); ABSOLUTE EOSINOPHILS # (AUTO) 0.1 10^3/uL (0.0-0.6); ABSOLUTE LYMPHOCYTES (AUTO) 2.1 10^3/uL (0.5-4.7); ABSOLUTE NEUT (AUTO) 9.8 10^3/uL (1.7-8.2); BASOPHILS % (AUTO) 0.4 % (0-2); EOSINOPHILS % (AUTO) 0.7 % (0-6); HEMATOCRIT 34.2 % (37.9-51.0); HEMOGLOBIN 11.3 g/dL (13.5-17.0); LYMPHOCYTES % (AUTO) 16.3 % (13-45); MEAN CORPUSCULAR HEMOGLOBIN 29.2 pg (27.0-33.4); MEAN CORPUSCULAR VOLUME 88 fl (80-97); MONOCYTES % (AUTO) 7.5 % (3-13); PLATELET COUNT 546 10^3/uL (150-450); RED BLOOD COUNT 3.88 10^6/uL (4.35-5.55); SEGMENTED NEUTROPHILS % (AUTO) 75.1 % (42-78); TOTAL CELLS COUNTED % (AUTO) 100 %; WHITE BLOOD COUNT 13.1 10^3/uL (4.0-10.5)
--- NOTE | 2018-05-15 16:48 | ER Document Report ---
ED General - General Chief Complaint: Fever Stated Complaint: HEADACHE,FEVER Time Seen by Provider: 05/15/18 14:40 Mode of Arrival: Ambulatory Notes: Mother had patient brought in because she says he has a temp, headache, and is dehydrated. Patient is severely debilitated due to cerebral palsy and is wheelchair and bed confined. He does communicate in some fashion through blinking of his eyes and speaking with his mother. Mother says he is actually no different today than he has been 4 weeks. She presumes he is having dehydration because he acts like he is currently acting when dehydrated. He has a feeding tube that was placed about 4 years ago. He also had respiratory failure about that same time and was on a ventilator for a couple of weeks and after that had the onset of seizures. He has a port in the right chest. Mother just gave him a pain pill about a half an hour ago. He takes 20 mg of oxycodone every 2 hours while awake. He is also on home O2. Mother says he has had some cough and congestion but no more than usual. Has vomited, but no diarrhea. Is prone to getting UTIs, but does not have any symptoms of want at this time. Mother thinks she has been running a low-grade fever. She has been taking his temp with a tympanic thermometer. Patient has had surgery for his port, feeding tube, suprapubic catheter, and back surgeries. On home oxygen all the time. TRAVEL OUTSIDE OF THE [place] IN LAST 30 DAYS: No - Related Data Allergies/Adverse Reactions: Sulfa (Sulfonamide Antibiotics) Allergy (Severe, Verified 05/15/18 13:34) Vomiting Past Medical History - General Information source: Patient - Social History Smoking Status: Never Smoker Chew tobacco use (# tins/day): No Frequency of alcohol use: None Drug Abuse: None Family History: Reviewed & Not Pertinent Patient has suicidal ideation: No Patient has homicidal ideation: No Pulmonary Medical History: Reports: Hx Bronchitis, Hx Pneumonia - HX RESP FAILURE WITH PNEU LAST YEAR, Hx Tuberculosis Neurological Medical History: Reports: Hx Seizures GI Medical History: Reports: Hx Gastroesophageal Reflux Disease, Hx Ulcer Past Surgical History: Reports: Hx Orthopedic Surgery - Cyndy Rods for Scoliosis, 3 more subsequent back surgeries. - Immunizations Immunizations up to date: Yes Hx Diphtheria, Pertussis, Tetanus Vaccination: Yes - UNSURE Hx Pneumococcal Vaccination: 10/29/14 Review of Systems - Review of Systems -: Yes ROS unobtainable due to patient's medical condition - Patient is unable to communicate with me. ROS secondhand by mom Physical Exam - Vital signs Vitals: Temp Pulse Resp BP Pulse Ox 99.2 F 106 H 16 83/55 L 95 05/15/18 13:42 05/15/18 13:42 05/15/18 13:42 05/15/18 13:42 05/15/18 13:42 Interpretation: Normal - Notes Notes: PHYSICAL EXAMINATION: GENERAL: Wheelchair confined. Nasal oxygen cannula taped to face. Does not have his eyes open and I do not think he is awake. Does not answer questions or follow command to me. HEAD: Atraumatic, normocephalic. NECK: Normal range of motion, supple. LUNGS: Breath sounds clear and equal bilaterally. Port in right upper chest. HEART: Regular rate and rhythm without murmurs. ABDOMEN: Soft, nontender. No guarding or rebound. No masses. BACK: No tenderness throughout entire back. EXTREMITIES: Contractures of all the extremities. NEUROLOGICAL: Severely debilitated. Unable to perform any requested task or answer questions. SKIN: Warm, dry, no rashes. Course - Vital Signs Vital signs: Temp Pulse Resp BP Pulse Ox 99.2 F 106 H 16 83/55 L 95 05/15/18 13:42 05/15/18 13:42 05/15/18 13:42 05/15/18 13:42 05/15/18 13:42 - Laboratory Result Diagrams: 05/15/18 16:30 05/15/18 16:30 Laboratory results interpreted by me: 05/15/18 05/15/18 05/15/18 15:10 16:30 16:30 WBC 13.1 H RBC 3.88 L Hgb 11.3 L Hct 34.2 L Plt Count 546 H Absolute Neutrophils 9.8 H Potassium 3.2 L Chloride 91 L Carbon Dioxide 37 H Creatinine 0.51 L Glucose 132 H Alkaline Phosphatase 244 H Urine Protein 100 H Urine Ketones 80 H Urine Bilirubin SMALL H Urine Urobilinogen 2.0 H Ur Leukocyte Esterase LARGE H Urine Ascorbic Acid 40 H Discharge - Discharge Clinical Impression: UTI (urinary tract infection), Dehydration Condition: Stable Disposition: HOME, SELF-CARE Additional Instructions: Dehydration Dehydration can result from vomiting or diarrhea, fever, or decreased intake of fluids. If severe, hospitalization and intravenous fluids may be required. Most cases are treated at home with fluids by mouth. For the next 24 hours, drink lots of clear fluids. In mild cases, this can be soda pop or sports drinks. For more severe dehydration, the doctor may recommend special fluids such as Pedialyte or Lytren. Try to get three liters ( 3 quarts) of fluid per day. If vomiting occurs, continue to drink the fluids frequently (every 15 to 20 minutes), but in small amounts (one or two ounces). Depending on the type of dehydration, the doctor may prescribe antinausea medicine or potassium replacements. Call the doctor or return for re-examination if you become progressively weak, vomit repeatedly, or have other new symptoms. Intravenous (IV) Fluids As part of your care today, you received intravenous (IV) fluids. IV fluids are administered to patients who are dehydrated or to those who have certain chemical (electrolyte) abnormalities that need correcting. URINARY TRACT INFECTION: Possible your evaluation indicates that you have a urinary tract infection. This is due to germs growing in the bladder. This is a common problem. This infection usually responds quickly to antibiotics. Your antibiotic should be taken exactly as prescribed. Drink plenty of fluids -- three to four quarts a day. Occasionally, a bladder anesthetic will be prescribed to help stop the feeling of urgency until the antibiotic has a chance to clear the infection. This may cause your urine to be dark orange. Certain urine infections require a culture. If the doctor obtained a culture, the results will be back in two days. You should call to see if a change in treatment is needed. A repeat urinalysis after you finish treatment is often recommended. The physician will let you know if further testing is required. Call the doctor if you develop fever, chills, flank pain, inability to urinate, or blood in the urine. ANTIBIOTIC THERAPY: You have been given an antibiotic prescription. It's important that you take all the medication, unless instructed otherwise by your physician. Failure to complete the entire course can result in relapse of your condition. Common side effects of antibiotics include nausea, intestinal cramping, or diarrhea. Women may develop vaginal yeast infections, and babies can get yeast (thrush) in the mouth following the use of antibiotics. Contact your physician if you develop significant side effects from this medication. Allergy to this antibiotic can result in hives, wheezing, faintness, or itching. If symptoms of allergy occur, stop the medication and call the doctor. Rocephin You have been given an injection of an antibiotic called Rocephin ( ceftriaxone). Sometimes the injection must be combined with antibiotic pills. For some infections, such as an uncomplicated ear infection, Rocephin provides all the antibiotic that's needed. The antibiotic will be in your body for about two days. For serious infections, we usually repeat doses of Rocephin daily. Side effects are very unusual following a shot. Women may develop vaginal yeast infections, and babies can get yeast (thrush) in the mouth following the use of antibiotics. Contact your physician if you have symptoms with this medication. Allergy to this antibiotic can result in hives, wheezing, faintness, or itching. If symptoms of allergy occur, call the doctor at once. CEPHALEXIN: The antibiotic you've been prescribed is a member of the cephalosporin class. This type of antibiotic covers a wide variety of infections, including those of the skin, lungs, and urinary tract. It's useful for staph infections. This antibiotic is slightly similar to the penicillin family. In rare cases , a person who is allergic to penicillin will also be allergic to this medication. If you have had a severe allergic reaction to penicillin, and have not taken this antibiotic since that time, notify your doctor. Antibiotics which cover many germs ("broad spectrum" antibiotics) are more likely to cause diarrhea or "yeast" infections. Women prone to vaginal yeast problems may suffer an attack after taking this antibiotic. In infants, oral thrush (white spots "stuck" on the cheek) or yeast diaper rash may result. See your doctor if these problems occur. Call at once if you develop itching, hives , shortness of breath, or lightheadedness. FOLLOW-UP CARE: If you have been referred to a physician for follow-up care, call the physician s office for an appointment as you were instructed or within the next two days. If you experience worsening or a significant change in your symptoms, notify the physician immediately or return to the Emergency Department at any time for re-evaluation. Prescriptions: Cephalexin 250 mg PO QID #150 ml Referrals: JOSE ROBERTO SHANNON MD [Primary Care Provider] - Follow up as needed
[2018-05-15] MEDS ORDERED: CEFTRIAXONE 1 GM/D5W RTU 1 GM/50 ML RTUPB IV ONE (16:50)
[2018-05-15 16:58] LABS: ALANINE AMINOTRANSFERASE 30 U/L (21-72); ALBUMIN 3.8 g/dL (3.5-5.0); ALKALINE PHOSPHATASE 244 U/L (38-126); ANION GAP 14 (5-19); ASPARTATE AMINO TRANSFERASE 24 U/L (17-59); BILIRUBIN,DIRECT 0.4 mg/dL (0.0-0.4); BILIRUBIN,TOTAL 0.4 mg/dL (0.2-1.3); BLOOD UREA NITROGEN 16 mg/dL (7-20); CALCIUM 9.7 mg/dL (8.4-10.2); CARBON DIOXIDE 37 mmol/L (22-30); CHLORIDE 91 mmol/L (98-107); GLUCOSE 132 mg/dL (75-110); POTASSIUM 3.2 mmol/L (3.6-5.0); SODIUM 141.7 mmol/L (137-145); TOTAL PROTEIN 7.5 g/dL (6.3-8.2)
--- NOTE | 2018-05-15 17:05 | RADIOLOGY REPORT (SQ) ---
EXAM DESCRIPTION: CHEST SINGLE VIEW COMPLETED DATE/TIME: 05/15/2018 4:53 pm REASON FOR STUDY: Fever and cough COMPARISON: 04/04/2018. EXAM PARAMETERS: NUMBER OF VIEWS: One view. TECHNIQUE: Single frontal radiographic view of the chest acquired. RADIATION DOSE: NA LIMITATIONS: None. FINDINGS: LUNGS AND PLEURA: No opacities, masses or pneumothorax. No pleural effusion. MEDIASTINUM AND HILAR STRUCTURES: No masses. Contour normal. HEART AND VASCULAR STRUCTURES: Heart normal in size. Normal vasculature. BONES: No acute findings. Chronic changes in the spine. HARDWARE: Vascular access port, stimulator device, spinal hardware. OTHER: No other significant finding. IMPRESSION: NO ACUTE RADIOGRAPHIC FINDING IN THE CHEST. TECHNICAL DOCUMENTATION: JOB ID: [id number] [employer]- All Rights Reserved Reading location - IP/workstation name: [email or web address]
[2018-05-15] MEDS ORDERED: HEPARIN SOD (PORCINE) 1 UNIT/ML PF 3 ML SYRINGE IV ONE (19:00)
[2018-05-15 19:55] VITALS: BP 117/75
== END 2018-05-15 20:01 | disposition home or self-care (01) ==
LOC: ER 13:33
DX: N39.0 Urinary tract infection, site not specified (principal); E86.0 Dehydration; R51 Headache; R50.9 Fever, unspecified; R11.10 Vomiting, unspecified; G80.9 Cerebral palsy, unspecified; Z93.1 Gastrostomy status; Z99.81 Dependence on supplemental oxygen; Z87.440 Personal history of urinary (tract) infections; Z88.2 Allergy status to sulfonamides
CPT/HCPCS: 36591; 99284; 96361; 96365; 36415; 87040; 87086; 85025; 87088; 80053; 81001; 87186; 71045; J7030; J0696

== ENCOUNTER 2018-07-01 12:40 | Emergency (ER) | payer MEDICARE, MEDICAID ==
[2018-07-01] MEDS ORDERED: NORMAL SALINE 1000 ML 1,000 ML IV ONE (12:56)
--- NOTE | 2018-07-01 12:56 | ER Document Report ---
ED Medical Screen (RME) - General Chief Complaint: Headache Stated Complaint: HEADACHE Time Seen by Provider: 07/01/18 12:55 Notes: 47-year-old male with cerebral palsy who has had decreased p.o. intake. Decreased and darkened urine. Patient has a feeding tube in. There was concern by family members that he is dehydrated. Patient has a Port-A-Cath in place. Patient seems to be complaining of abdominal pain as well. I have greeted and performed a rapid initial assessment of this patient. A comprehensive ED assessment and evaluation of the patient, analysis of test results and completion of the medical decision making process will be conducted by additional ED providers. TRAVEL OUTSIDE OF THE [place] IN LAST 30 DAYS: No - HPI Onset: Yesterday Onset/Duration: Gradual, Constant - Related Data Allergies/Adverse Reactions: Sulfa (Sulfonamide Antibiotics) Allergy (Severe, Verified 07/01/18 12:43) Vomiting Past Medical History - Past Medical History Cardiac Medical History: Denies: Hx Coronary Artery Disease, Hx Heart Attack, Hx Hypertension Pulmonary Medical History: Reports: Hx Bronchitis, Hx Pneumonia - HX RESP FAILURE WITH PNEU LAST YEAR, Hx Tuberculosis Denies: Hx Asthma, Hx COPD Neurological Medical History: Reports: Hx Seizures. Denies: Hx Cerebrovascular Accident Renal/ Medical History: Denies: Hx Peritoneal Dialysis GI Medical History: Reports: Hx Gastroesophageal Reflux Disease, Hx Ulcer Musculoskeltal Medical History: Denies Hx Arthritis Psychiatric Medical History: Denies: Hx Depression Past Surgical History: Reports: Hx Orthopedic Surgery - Cyndy Rods for Scoliosis, 3 more subsequent back surgeries.. Denies: Hx Appendectomy, Hx Bowel Surgery, Hx Cholecystectomy, Hx Coronary Artery Bypass Graft, Hx Gastric Bypass Surgery, Hx Herniorrhaphy, Hx Pacemaker, Hx Tonsillectomy - Immunizations Immunizations up to date: Yes Hx Diphtheria, Pertussis, Tetanus Vaccination: Yes - UNSURE Physical Exam - Vital signs Vitals: Temp Pulse Resp BP Pulse Ox 98.3 F 84 14 75/49 L 93 07/01/18 12:48 07/01/18 12:48 07/01/18 12:48 07/01/18 12:48 07/01/18 12:48 Interpretation: Normal - General General appearance: Appears well, Alert Notes: Patient with obvious cerebral palsy. Sitting upright in a wheelchair. Making eye contact and answering questions with eye movement and blinking. - Respiratory Respiratory status: No respiratory distress Chest status: Nontender Breath sounds: Normal Chest palpation: Normal - Cardiovascular Rhythm: Regular Heart sounds: Normal auscultation Murmur: No - Abdominal Inspection: Normal Distension: No distension Bowel sounds: Normal Tenderness: Tender Organomegaly: No organomegaly Course - Vital Signs Vital signs: Temp Pulse Resp BP Pulse Ox 98.3 F 84 14 75/49 L 93 07/01/18 12:48 07/01/18 12:48 07/01/18 12:48 07/01/18 12:48 07/01/18 12:48 Doctor's Discharge - Discharge Referrals: JOSE ROBERTO SHANNON MD [Primary Care Provider] - Follow up as needed
[2018-07-01 14:16] LABS: ABSOLUTE EOSINOPHILS # (AUTO) 0.3 10^3/uL (0.0-0.6); ABSOLUTE LYMPHOCYTES (AUTO) 1.5 10^3/uL (0.5-4.7); ABSOLUTE MONOCYTES (AUTO) 1.2 10^3/uL (0.1-1.4); ABSOLUTE NEUT (AUTO) 16.8 10^3/uL (1.7-8.2); BASOPHILS % (AUTO) 0.2 % (0-2); EOSINOPHILS % (AUTO) 1.7 % (0-6); HEMATOCRIT 27.7 % (37.9-51.0); HEMOGLOBIN 9.3 g/dL (13.5-17.0); LYMPHOCYTES % (AUTO) 7.4 % (13-45); MEAN CORPUSCULAR HEMOGLOBIN 29.3 pg (27.0-33.4); MEAN CORPUSCULAR HGB CONC 33.6 g/dL (32.0-36.0); MEAN CORPUSCULAR VOLUME 87 fl (80-97); MONOCYTES % (AUTO) 6.2 % (3-13); PLATELET COUNT 404 10^3/uL (150-450); RED BLOOD COUNT 3.18 10^6/uL (4.35-5.55); RED CELL DISTRIBUTION WIDTH 13.8 % (11.5-14.0); SEGMENTED NEUTROPHILS % (AUTO) 84.5 % (42-78); TOTAL CELLS COUNTED % (AUTO) 100 %; WHITE BLOOD COUNT 19.9 10^3/uL (4.0-10.5)
[2018-07-01 14:19] LABS: APPEARANCE,URINE CLOUDY; BILIRUBIN,URINE NEGATIVE (NEGATIVE); GLUCOSE, URINE NEGATIVE (NEGATIVE); KETONES,URINE 20 mg/dL (NEGATIVE); LEUKOCYTE ESTERASE,URINE LARGE (NEGATIVE); NITRITE,URINE POSITIVE (NEGATIVE); PROTEIN,URINE NEGATIVE (NEGATIVE); URINE SPECIFIC GRAVITY 1.018; UROBILINOGEN,URINE NEGATIVE mg/dL (<2.0)
[2018-07-01 14:20] LABS: COLOR,URINE YELLOW
[2018-07-01 14:38] LABS: ALANINE AMINOTRANSFERASE 52 U/L (21-72); ALKALINE PHOSPHATASE 342 U/L (38-126); ANION GAP 12 (5-19); ASPARTATE AMINO TRANSFERASE 24 U/L (17-59); BILIRUBIN,DIRECT 0.1 mg/dL (0.0-0.4); BILIRUBIN,TOTAL 0.1 mg/dL (0.2-1.3); BLOOD UREA NITROGEN 13 mg/dL (7-20); CALCIUM 8.9 mg/dL (8.4-10.2); CARBON DIOXIDE 33 mmol/L (22-30); CHLORIDE 89 mmol/L (98-107); GLUCOSE 106 mg/dL (75-110); LIPASE 27.7 U/L (23-300); POTASSIUM 4.3 mmol/L (3.6-5.0); SODIUM 133.5 mmol/L (137-145); TOTAL PROTEIN 6.4 g/dL (6.3-8.2)
--- NOTE | 2018-07-01 14:57 | ER Document Report ---
ED General <EUGENIO VO - Last Filed: 07/01/18 17:26> - General Mode of Arrival: Wheelchair Information source: Relative TRAVEL OUTSIDE OF THE [place] IN LAST 30 DAYS: No <LUIS M AMBROCIO - Last Filed: 07/02/18 00:08> - General Chief Complaint: Headache Stated Complaint: HEADACHE Time Seen by Provider: 07/01/18 12:55 Notes: Patient is a 47 year old male, who is severely debilitated secondary to cerebral palsy and wheelchair and bed confined presents to the emergency department accompanied by family member complaining of a headache and possible dehydration. Family states the patient has had decreased oral intake as well and dark and decreased urine. She believes the patient is currently dehydrated. She states the patient has a history of frequent UTIs and MRSA. Patient was seen in this ED on 05/15/2018 for similar symptoms and was found to have a UTI. An urine culture was performed which found Pseudomonas aeruginosa and Enterococcus faecalis. Patient was subsequently prescribed Cefepime and Doxycycline on outpatient care. Patient has a suprapubic preston catheter and a feeding tube. Patient's PCP is Dr. Ramirez. (LUIS M AMBROCIO) - Related Data Allergies/Adverse Reactions: Sulfa (Sulfonamide Antibiotics) Allergy (Severe, Verified 07/01/18 12:43) Vomiting Past Medical History - General Information source: Relative - Social History Smoking Status: Never Smoker Chew tobacco use (# tins/day): No Frequency of alcohol use: None Drug Abuse: None Family History: Reviewed & Not Pertinent Patient has suicidal ideation: No Patient has homicidal ideation: No Pulmonary Medical History: Reports: Hx Bronchitis, Hx Pneumonia - HX RESP FAILURE WITH PNEU LAST YEAR, Hx Tuberculosis Neurological Medical History: Reports: Hx Seizures GI Medical History: Reports: Hx Gastroesophageal Reflux Disease, Hx Ulcer Past Surgical History: Reports: Hx Orthopedic Surgery - Cyndy Rods for Scoliosis, 3 more subsequent back surgeries. - Immunizations Immunizations up to date: Yes Hx Diphtheria, Pertussis, Tetanus Vaccination: Yes - UNSURE Hx Pneumococcal Vaccination: 10/29/14 <LUIS M AMBROCIO - Last Filed: 07/02/18 00:08> Review of Systems - Review of Systems -: Yes ROS unobtainable due to patient's medical condition - Per relative <LUIS M AMBROCIO - Last Filed: 07/02/18 00:08> Physical Exam <EUGENIO VO - Last Filed: 07/01/18 17:26> <LUIS M AMBROCIO - Last Filed: 07/02/18 00:08> - Vital signs Vitals: Temp Pulse Resp BP Pulse Ox 98.3 F 84 14 75/49 L 93 07/01/18 12:48 07/01/18 12:48 07/01/18 12:48 07/01/18 12:48 07/01/18 12:48 - Notes Notes: GENERAL: Wheelchair confined. Will communicate by blinking and nodding, at baseline. HEAD: Normocephalic, atraumatic. EYES: Pupils equal, round, and reactive to light. Extraocular movements intact. ENT: Oral mucosa moist, tongue midline. NECK: Full range of motion. Supple. Trachea midline. LUNGS: Nasal cannula taped to face. Clear to auscultation bilaterally, no wheezes, rales, or rhonchi. No respiratory distress. HEART: Regular rate and rhythm. No murmurs, gallops, or rubs. Port in right upper chest. ABDOMEN: Suprapubic preston catheter. Soft, non-tender. Non-distended. Bowel sounds present in all 4 quadrants. EXTREMITIES: Contractures of the BUE. No edema, radial and dorsalis pedis pulses 2/4 bilaterally. No cyanosis. NEUROLOGICAL: Will communicate by blinking and nodding. Severely debilitated due to Cerebral palsy, at baseline. PSYCH: Normal affect, normal mood. SKIN: Warm, dry, normal turgor. No rashes or lesions noted. (LUIS M AMBROCIO) Course - Laboratory Result Diagrams: 07/01/18 14:02 07/01/18 14:02 <EUGENIO VO - Last Filed: 07/01/18 17:26> - Laboratory Result Diagrams: 07/01/18 14:02 07/01/18 14:02 <LUIS M AMBROCIO - Last Filed: 07/02/18 00:08> - Re-evaluation Re-evalutation: 07/01/18 15:47 The patient appears to have urinary tract infection again. He was treated in April for urinary tract infection that grew out Pseudomonas and Enterococcus faecalis. The cephalexin he was discharged on was changed to cefepime IV and doxycycline per tube. He ended up not getting the doxycycline because it caused GI upset. A repeat urine culture about a week later grew only Gracie yeast. Review of records shows that he frequently has UTIs with Pseudomonas, has on occasion had enterococcus, also MRSA. We will cover him for Pseudomonas with cefepime. (EUGENIO VO) - Vital Signs Vital signs: Temp Pulse Resp BP Pulse Ox 97.3 F 68 16 90/49 L 94 07/01/18 16:07 07/01/18 17:48 07/01/18 17:48 07/01/18 17:48 07/01/18 17:48 - Laboratory Laboratory results interpreted by me: 07/01/18 07/01/18 07/01/18 14:02 14:02 14:02 WBC 19.9 H RBC 3.18 L Hgb 9.3 L Hct 27.7 L Seg Neutrophils % 84.5 H Lymphocytes % 7.4 L Absolute Neutrophils 16.8 H Sodium 133.5 L Chloride 89 L Carbon Dioxide 33 H Creatinine 0.43 L Total Bilirubin 0.1 L Alkaline Phosphatase 342 H Albumin 3.0 L Urine Ketones 20 H Urine Nitrite POSITIVE H Ur Leukocyte Esterase LARGE H Urine Ascorbic Acid 20 H Discharge <EUGENIO VO - Last Filed: 07/01/18 17:26> <LUIS M AMBROCIO - Last Filed: 07/02/18 00:08> - Discharge Clinical Impression: Urinary tract infection Qualifiers: Urinary tract infection type: catheter-associated UTI Indwelling urinary catheter type: cystostomy catheter Encounter type: initial encounter Qualified Code(s): T83.510A - Infection and inflammatory reaction due to cystostomy catheter, initial encounter Leukocytosis Qualifiers: Leukocytosis type: other Qualified Code(s): D72.828 - Other elevated white blood cell count Headache Qualifiers: Headache type: unspecified Headache chronicity pattern: unspecified pattern Intractability: not intractable Qualified Code(s): R51 - Headache Condition: Stable Disposition: HOME, SELF-CARE Additional Instructions: Your lab work suggests that you have a urinary tract infection. You should increase your fluid intake over the next few days. You will be prescribed cefepime for Pseudomonas coverage until the culture results come back. Follow-up with Dr. Ramirez Wednesday morning for recheck and to review the urine culture results. Tylenol for fever or headache if needed. RETURN TO THE EMERGENCY ROOM IF ANY NEW OR WORSENING SYMPTOMS. Prescriptions: Cefepime 1 gm/D5w RTU [Maxipime RTU 1 gm/D5w 50 ml Premix Bag] 1 gm IV Q12 #14 rtupb Referrals: JOSE ROBERTO RAMIREZ MD [Primary Care Provider] - 07/04/18 Scribe Attestation: 07/01/18 17:31 I personally performed the services described in the documentation, reviewed and edited the documentation which was dictated to the scribe in my presence, and it accurately records my words and actions. (EUGENIO VO) Scribe Documentation - Scribe Written by Nick:: Nick Sheikh, 07/01/2018 15:13 acting as scribe for :: Zoya <LUIS M AMBROCIO - Last Filed: 07/02/18 00:08>
[2018-07-01] MEDS ORDERED: CEFEPIME 1 GM/D5W RTU 1 GM/50 ML RTUPB IV ONE (15:02)
[2018-07-01] MEDS ORDERED: ACETAMINOPHEN SUSP 160 MG/5 ML ORAL SYRING GT ONE (15:49)
[2018-07-01 17:48] VITALS: BP 90/49
== END 2018-07-01 17:48 | disposition home or self-care (01) ==
LOC: ER 12:40
DX: T83.510A Infection and inflammatory reaction due to cystostomy catheter, initial encounter (principal); D72.828 Other elevated white blood cell count; R51 Headache; X58.XXXA Exposure to other specified factors, initial encounter; G80.9 Cerebral palsy, unspecified; Z74.01 Bed confinement status; Z87.440 Personal history of urinary (tract) infections; Z86.14 Personal history of Methicillin resistant Staphylococcus aureus infection; Z88.2 Allergy status to sulfonamides; Z93.1 Gastrostomy status
CPT/HCPCS: 36591; 99284; 96361; 96365; 36415; 87086; 83690; 85025; 87088; 80053; 81001; 87186; J7030; A9270; J0692

== ENCOUNTER 2018-07-23 19:10 | Emergency (ER) | payer MEDICARE, MEDICAID ==
--- NOTE | 2018-07-23 21:37 | ER Document Report ---
ED General - General Chief Complaint: Problem with Feeding Tube Stated Complaint: FEEDING TUBE PROBLEM Time Seen by Provider: 07/23/18 20:36 Information source: Parent Cannot obtain history due to: Mentally challenged Notes: Patient is a 47-year-old male with G-tube dependence who presents with dislodgment of his G-tube. He has no additional apparent concerns but he is nonverbal. Mother the bedside reports history. She states that she has been unable to provide his tube feeding due to the balloon had ruptured. This has been in the past and has required emergency room visits for G-tube replacement. TRAVEL OUTSIDE OF THE [place] IN LAST 30 DAYS: No - Related Data Allergies/Adverse Reactions: Sulfa (Sulfonamide Antibiotics) Allergy (Severe, Verified 07/01/18 12:43) Vomiting Past Medical History - General Information source: Parent - Social History Smoking Status: Never Smoker Chew tobacco use (# tins/day): No Frequency of alcohol use: None Drug Abuse: None Lives with: Parents Family History: Reviewed & Not Pertinent Patient has suicidal ideation: No Patient has homicidal ideation: No - Past Medical History Cardiac Medical History: Denies: Hx Coronary Artery Disease, Hx Heart Attack, Hx Hypertension Pulmonary Medical History: Reports: Hx Bronchitis, Hx Pneumonia - HX RESP FAILURE WITH PNEU LAST YEAR, Hx Tuberculosis Denies: Hx Asthma, Hx COPD Neurological Medical History: Reports: Hx Seizures. Denies: Hx Cerebrovascular Accident Renal/ Medical History: Denies: Hx Peritoneal Dialysis GI Medical History: Reports: Hx Gastroesophageal Reflux Disease, Hx Ulcer Musculoskeletal Medical History: Denies Hx Arthritis Psychiatric Medical History: Denies: Hx Depression Past Surgical History: Reports: Hx Orthopedic Surgery - Cyndy Rods for Scoliosis, 3 more subsequent back surgeries.. Denies: Hx Appendectomy, Hx Bowel Surgery, Hx Cholecystectomy, Hx Coronary Artery Bypass Graft, Hx Gastric Bypass Surgery, Hx Herniorrhaphy, Hx Pacemaker, Hx Tonsillectomy - Immunizations Immunizations up to date: Yes Hx Diphtheria, Pertussis, Tetanus Vaccination: Yes - UNSURE Hx Pneumococcal Vaccination: 10/29/14 Review of Systems - Review of Systems -: Yes ROS unobtainable due to patient's medical condition Physical Exam - Vital signs Vitals: Temp Pulse Resp BP Pulse Ox 97.6 F 85 20 115/69 98 07/23/18 19:46 07/23/18 19:46 07/23/18 19:46 07/23/18 19:46 07/23/18 19:46 Notes: PHYSICAL EXAMINATION: GENERAL: In no distress HEAD: Atraumatic, normocephalic. EYES: sclera anicteric, conjunctiva are normal. ENT: Moderately dry mucous membranes. LUNGS: Normal work of breathing HEART: 2+ radial pulses bilaterally Abdomen: G-tube in place in mid abdomen with tape. No surrounding leakage. EXTREMITIES: no pitting or edema. No cyanosis. PSYCH: Nonverbal SKIN: Warm, Dry, normal turgor, no rashes or lesions noted. Course - Re-evaluation Re-evalutation: 07/23/18 21:36 Presentation of a dislodged feeding tube. No additional complaints or concerns. Feeding tube replaced without difficulty. Gastric contents able to be aspirated. Free water flush instilled without difficulty. Patient will be discharged home. - Vital Signs Vital signs: Temp Pulse Resp BP Pulse Ox 97.9 F 84 18 109/87 H 96 07/23/18 21:41 07/23/18 21:41 07/23/18 21:41 07/23/18 21:41 07/23/18 21:41 Discharge - Discharge Clinical Impression: Encounter for feeding tube placement Feeding tube dysfunction Qualifiers: Encounter type: initial encounter Qualified Code(s): T85.598A - Other mechanical complication of other gastrointestinal prosthetic devices, implants and grafts, initial encounter Condition: Good Disposition: HOME, SELF-CARE Additional Instructions: Please return to the emergency room immediately if you experience any concerning symptoms including high fevers, severe headache, chest pain, difficulty breathing, abdominal pain, slurred speech, numbness or weakness in your arms or legs, or any other symptom that concerns you. Referrals: WILBUR SAHU MD [Primary Care Provider] - Follow up as needed
[2018-07-23 21:47] VITALS: BP 109/87
== END 2018-07-23 21:47 | disposition home or self-care (01) ==
LOC: ER 19:10
DX: T85.598A Other mechanical complication of other gastrointestinal prosthetic devices, implants and grafts, initial encounter (principal); X58.XXXA Exposure to other specified factors, initial encounter; Z88.2 Allergy status to sulfonamides
CPT/HCPCS: 99282